=== PATIENT | female | born 1975 | race Caucasian/White ===

== ENCOUNTER 2024-10-08 08:08 | Outpatient (AMB) | payer OTHER, SELFPAY ==
--- NOTE | 2024-10-08 08:08 | A.OFFPC_ITS ---
Vital Signs 10/08/24 08:10 Height 5 ft 2.99 in Weight 145 lb BMI 25.7 BP 106/74 Blood Pressure Location Lt brachial Position Sitting Pulse 79 Pulse Source Pulse Oximeter Pulse Oximetry (%) 99 Oxygen Delivery Method Room Air Intake Visit Reasons: New pt PE Intake Note: Pt is here today for New patient visit PE. Allergies Penicillins Allergy (Verified 10/08/24 08:11) Rash Medication List - Last Reconciled 10/08/24 by Marci Moe MD No Known Home Meds Tobacco use date assessed: 10/08/24 Dental Screening Dental Screen Date: 10/08/24 Did you have a dental visit in the last 12 months?: Yes Did you have a dental problem in the last 6 months where you did not have access to dental care?: No Was dental information given to patient?: Patient has dentist HPI New pt PE HPI Details Pt presents for HEALTHCARE MANAGER PE. Pt complains of feeling tired having low energy for the last few months. Patient's dentist question if she may have sleep apnea and recommended patient to be tested. She reports irregular menses but denies hot flashes and is established with senior network systems engineer [facility] Surgical History No pertinent past surgical history Family History Father No problems noted. Mother No problems noted. Sister Mental health disorder Social History (Updated 10/08/24 @ 08:40 by Marci Moe MD) Household Members Other:: , 1 daughter 19 y, work in [employer] college admission Housing: House Patient Tobacco Use Status: Never used Tobacco e-Cigarette/Vaping Use: Never Used service: No Current occupational status: employed Cognitive needs: No Hearing needs: No Vision needs: Yes Questionnaire PHQ-9 Over the last 2 weeks, how often have you been bothered by any of the following problems? 1. Little interest or pleasure in doing things: not at all 2. Feeling down, depressed, or hopeless: not at all 3. Trouble falling or staying asleep, or sleeping too much: not at all 4. Feeling tired or having little energy: not at all 5. Poor appetite or overeating: not at all 6. Feeling bad about yourself - or that you are a failure or have let yourself or your family down: not at all 7. Trouble concentrating on things, such as reading the newspaper or watching television: not at all 8. Moving or speaking so slowly that other people could have noticed. Or the opposite - being so fidgety or restless that you have been moving around a lot more than usual: not at all 9. Thoughts that you would be better off or of hurting yourself in some way: not at all Total score: 0 Depression Screening Interpretation: Negative Depression Screening Done: Yes 42699 - PHQ-9 Billing: Yes Source: Developed by Drs. Dennis Andino, Debra Miles, Aleksandar Mason and colleagues, with an educational willow from [employer]. Thrive Questionnaire Date Thrive assessed: 10/08/24 I am a: Patient What is your living situation today?: I have a steady place to live Within the past 12 months, did the food you bought not last and you didn't have the money to get more?: Never true Within the past 12 months, did you worry whether your food would run out before you got money to buy more?: Never true Do you have trouble paying for medicines?: No Do you have trouble getting transportation to medical appointments?: No Do you have trouble paying your heating and electricity bill?: No Do you have trouble taking care of your child, family member or friend?: No Do you have trouble with day-to-day activities such as bathing, preparing meals, shopping, managing finances, etc.?: No Are you currently unemployed and looking for a job?: No Are you interested in more education?: No Please select the resources that you would like help with: None THRIVE Score: 0 AUDIT C Alcohol Use Questionnaire (AUDIT-C) 1. How often do you have a drink containing alcohol?: Monthly or less 2. How many drinks containing alcohol do you have on a typical day when you are drinking?: 1 or 2 3. How often do you have six or more drinks on one occasion?: Never Total Score: 1 AJ-7 AMB Questionnaire AJ-7 Date AJ - 7 assessed: 10/08/24 Feeling nervous, anxious, or on edge: 0 = Not at all Not being able to stop or control worryin = Not at all Worrying too much about different things: 0 = Not at all Trouble relaxin = Not at all Being so restless that it is hard to sit still: 0 = Not at all Becoming easily annoyed or irritable: 0 = Not at all Feeling afraid as if something awful might happen: 0 = Not at all Total AJ-7 score (0-4 normal; 5-9 mild; 10-14 moderate; 15-21 severe): 0 Source: Developed by Drs. Dennis Andino, Debra Miles, Aleksandar Mason and colleagues, with an educational willow from [employer]. AJ-7 Assessment Billing AJ-7 Assessment Tool: AJ-7 Assessment 48412 Review of Systems Const All systems reviewed & are unremarkable except as noted in HPI and below Eyes Reports no additional complaints ENT Reports no additional complaints Card Reports no additional complaints Resp Reports no additional complaints GI Reports no additional complaints Reports no additional complaints Physical exam (Primary Care) Vital Signs: Last Vital Signs Pulse 79 10/08/24 08:10 BP 106/74 10/08/24 08:10 Pulse Ox 99 10/08/24 08:10 Oxygen Delivery Method Room Air 10/08/24 08:10 BMI result Body Mass Index 25.7 Tobacco/Smoking Status: Tobacco use Status Tobacco use date assessed 10/08/24 10/08/24 08:17 Patient Tobacco Use Status Never used Tobacco 10/08/24 08:17 e-Cigarette/Vaping Use Never Used 10/08/24 08:17 PHQ-9: PHQ-9 Score PHQ-9: Total score 0 10/08/24 08:17 Depression Screening Interpretation: Negative Thrive Assessment: Date of Thrive Assessment Date Thrive assessed 10/08/24 10/08/24 08:17 Const General: no acute distress HENMT Head: Yes normal to inspection Ears: hearing grossly normal bilaterally General nose exam: Normal external nose present Face and sinus: Yes normal facial exam Mouth: Normal oral and palatal mucosa present Throat: Yes posterior oropharynx normal Eyes General: appearance normal, both eyes and all related structures Neck Neck: Yes no lymphadenopathy and Yes supple Resp Effort & Inspection: normal respiratory effort Auscultation: clear to auscultation bilaterally Cardio Rhythm: regular rhythm Heart sounds: S1 normal heart sound present and S2 normal heart sound present GI Inspection: Yes normal to inspection Palpation (GI): Soft to palpation Percussion: Yes normal to percussion Auscultation: normal bowel sounds Coding Level of Care Code New Pt Prev Care 40-64y(26746) Diagnoses Normal pelvic exam Z01.419 Annual physical exam Z00. Sleep apnea G47.30 Fatigue R53.83 Additional Codes AJ-7 Assessment Billing - AJ-7 Assessment Tool: AJ-7 Assessment 88949 ([id number]) PHQ-9 - 84963 - PHQ-9 Billing: Yes ([id number]) Assessment & Plan Assessment & Plan (1) Normal pelvic exam: Comment: senior network systems engineer 2023 Code(s): Z01.419 - Encounter for gynecological examination (general) (routine) without abnormal findings Category: Medical Plan: Patient is up-to-date with the Pap smear mammogram (2) Annual physical exam: Code(s): Z. - Encounter for general adult medical examination without abnormal findings Category: Medical Plan: Well-balanced diet regular physical activity discussed with the patient she will have a fasting blood work today. Patient will be referred to GI for colonoscopy (3) Sleep apnea: Code(s): G47.30 - Sleep apnea, unspecified Category: Medical Plan: Obtain sleep study (4) Fatigue: Code(s): R53.83 - Other fatigue Category: Medical Plan: Well-balanced diet regular physical activity discussed with the patient, check blood work today Orders: Orders IRON PROFILE Today Z00.00 - Encounter for general adult medical examination without abnormal findings Vitamin B12 and Folate Today R53.83 - Other fatigue Comprehensive [place]. Panel Fast Today Z00.00 - Encounter for general adult medical examination without abnormal findings Complete Blood Count Auto Diff Today Z00.00 - Encounter for general adult medical examination without abnormal findings Lipid Panel Today Z00.00 - Encounter for general adult medical examination without abnormal findings TSH reflex Free T4 Today Z00.00 - Encounter for general adult medical examination without abnormal findings UA w Microscopic Today Z00.00 - Encounter for general adult medical examination without abnormal findings RT home sleep study Today G47.30 - Sleep apnea, unspecified Vitamin D 25-OH Total Today R53.83 - Other fatigue Referrals Gastroenterology Referral Z00.00 - Encounter for general adult medical examination without abnormal findings
[2024-10-08 08:10] VITALS: BP 106/74; PULSE 79; O2SAT 99; BMI 25.7
== END 2024-10-08 08:55 | disposition home or self-care (01) ==
PROVIDERS: PCP Internal Medicine; Visit Provider Internal Medicine
DX: Z01.419 Encounter for gynecological examination (general) (routine) without abnormal findings (principal); Z00.00 Encounter for general adult medical examination without abnormal findings; G47.30 Sleep apnea, unspecified; R53.83 Other fatigue

== ENCOUNTER 2024-10-08 08:08 | Outpatient (REF) | payer OTHER, SELFPAY ==
[2024-10-08 13:10] LABS: Appearance Urine Clear; Color Urine Yellow; Glucose Urine UA Negative (Negative); Leukocyte Esterase Urine Negative (Negative); Nitrite Urine Negative (Negative); PH 7.5 (5.0-9.0); Specific Gravity - Urine <= 1.005 (1.005-1.025); Urine Blood Negative (Negative); Urine Ketones Negative (Negative); Urine Protein Negative (Neg-Trace)
[2024-10-08 13:11] LABS: MANUAL DIFF FLAG NO
[2024-10-08 13:17] LABS: Bacteria Urine None Seen (None Seen); Hyaline Casts Urine 0-2 /LPF (0-2); RBC Urine 0-2 /HPF (0-2); Squamous Epithelial Cell Urine 0-2 /HPF (0-2); WBC Urine 0-5 /HPF (0-5)
[2024-10-08 13:30] LABS: Basophils Percent Auto 0.3 % (0-2); Eosinophils Absolute Auto 0.1 X10*3/uL (0.0-0.4); Eosinophils Percent Auto 1.2 % (0-4); Hematocrit 39.1 % (37.0-47.0); Hemoglobin 12.9 g/dl (12.0-16.0); Imm Gran Abs Auto 0.01 X10*3/uL (0.00-0.03); Imm Gran Pct Auto 0.2 % (0.0-0.4); Lymphocytes Percent Auto 32.7 % (20-40); Mean Corpuscular Hemoglobin 30.6 pg (27.0-33.0); Mean Corpuscular Volume 92.7 fL (80.0-98.0); Mean Platelet Volume 10.3 fL (9.4-12.3); Monocytes Absolute Auto 0.4 X10*3/uL (0.1-1.2); Monocytes Percent Auto 7.2 % (2-11); Neutrophils Absolute Auto 3.5 x10*3/uL (2.0-8.3); Neutrophils Percent Auto 58.4 % (45-73); Platelet Count 294 X10*3/uL (160-400); Red Blood Count 4.22 X10*6/uL (4.20-5.50); Red Cell Distribution Width 13.2 % (11.0-16.0)
[2024-10-08 14:03] LABS: Alanine Aminotransferase 18 U/L (0-31); Albumin Level 4.4 g/dL (3.5-5.0); Alkaline Phosphatase 32 U/L (39-117); Anion Gap 10 (12-20); Aspartate Amino Transferase 21 U/L (5-31); Bilirubin Total 0.4 mg/dL (0.0-1.0); Blood Urea Nitrogen 12 mg/dL (9-16); Calcium 9.4 mg/dL (8.4-10.2); Carbon Dioxide 27 mmol/L (22-29); Chloride 105 mmol/L (96-108); Cholesterol 284 mg/dL (<200); Estimated Glomerular Filt Rate > 60; Glucose Fasting 96 mg/dL (60-99); HDL Cholesterol 91 mg/dL (>40); Iron 108 mcg/dL (30-160); LDL Cholesterol Calculated 182 mg/dL (<100); Percent Iron Saturation 38 % (15-50); Potassium 3.9 mmol/L (3.3-5.1); Sodium 138 mmol/L (135-145); Total Iron Binding Capacity 288 mcg/dL (228-428); Total Protein 7.2 g/dL (6.5-8.0); Triglycerides 56 mg/dL (<150); Unsaturated Iron Binding 180 ug/dL
[2024-10-08 14:07] LABS: TSH reflex Free T4 1.39 uIU/mL (0.32-4.0)
[2024-10-08 14:11] LABS: Vitamin B12 553 pg/mL (200-900)
== END 2024-10-08 08:09 | disposition home or self-care (01) ==
LOC: HO.HMGCLDS 08:08
PROVIDERS: PCP Internal Medicine; Visit Provider Internal Medicine
DX: Z00.00 Encounter for general adult medical examination without abnormal findings (principal); G47.30 Sleep apnea, unspecified; R53.83 Other fatigue
CPT/HCPCS: 36415; 80053; 80061; 81001; 82306; 82607; 82746; 83540; 84443; 85025; 96127